=== PATIENT | female | born 1975 | race African-American/Black ===

== ENCOUNTER 2024-05-07 17:00 | Emergency (ER) | payer OTHER ==
--- OUTSIDE RECORDS SUMMARY | 2024-05-07 17:03 | XMS REPORT | Continuity of Care Document ---
Author Name Unknown Address [address] [place] [address] [facility] Address [address] [place] [address] Care Team Providers Care Negative Turner Apprentice Name Role Phone Pauline James Attending Clinician YULIANA Gavin Attending Clinician Unavailable Lab, Adc Fam Pob I Attending Clinician Adilia Marinelli Attending Clinician ADILIA LANDON Attending Clinician Unavailable Pob1, Acute Care Clinic Attending Clinician Joanne Koenig RN Attending Clinician Natasha ble KNOW, DOES_NOT Admitting Clinician Unavailable Payers Payer Name Policy Type Policy Number Effective Date Expirati on Date Source Problems Condition Name Condition Details Condition Category Status Onset Date Resolution Date Last Treatment Date Treating Clinician Comments Source Elevated blood-pres sure reading without diagnosis of hypertensi on Elevated Blood-pres sure Reading without Diagnosis of Hypertensi on Problem Active 12-05 00:00: 00 [facility] Anxiety Anxiety Problem Active 12-05 00:00: 00 [facility] Acute vaginitis Acute Vaginitis Problem Active 12-05 00:00: 00 [facility] Menopausal flushing Menopausal Flushing Problem Active 12-05 00:00: 00 [facility] Obesity Obesity Disease Active 12-06 00:00: 00 Overview: ICD10 Diagnosis Term Machine In[employer] [facility] Encounter for routine gynecologi therese examinatio n Encounter for routine gynecologi therese examinatio n Disease Active 12-06 00:00: 00 Overview: ICD10 Diagnosis Term Machine [employer] [facility] Uterine leiomyoma, unspecifie d location Uterine leiomyoma, unspecifie d location Disease Active 12-06 00:00: 00 [facility] Polyp of cervix Polyp of Cervix Problem Active [facility] Enlarged uterus Enlarged Uterus Problem Active [facility] Abnormal uterine bleeding Abnormal Uterine Bleeding Problem Active [facility] Abnormal cervical Papanicola ou smear with human papillomav irus deoxyribon ucleic acid detected Abnormal Cervical Papanicola ou Smear with Human Papillomav irus Deoxyribon ucleic Acid Detected Problem Active [facility] Allergies, Adverse Reactions, Alerts Allergy Name Allergy Type Status Severity Reaction(s) Onset Date Inactive Date Treating Clinician Comments Source No Known Allergie s DA Active U 03-27 00:00: 00 [facility] NO KNOWN ALLERGIE S Drug Class Active [facility] Social History Social Habit Start Date Stop Date Quantity Comments Source Tobacco Comment social smoking [facility] Exposure to SARS-CoV-2 (event) Yes [facility] History of tobacco use Cigarette Smoker [facility] Cigarette pack-years 2020-01-02 00:00:00 2020-01-02 00:00:00 [facility] Alcohol intake 2020-01-02 00:00:00 2020-01-02 00:00:00 [facility] Cigarettes smoked current (pack per day) - Reported 2020-01-02 00:00:00 2020-01-02 00:00:00 [facility] Smoking Status Start Date Stop Date Source Smoker, Current Status Unknown [facility] Current some day smoker 2020-01-02 00:00:00 [facility] Medications Ordered Medication Name Filled Medication Name Start Date Stop Date Current Medication? Ordering Clinician Indication Dosage Frequency Signature (SIG) Comments Components Source acetaminoph en-codeine (TYLENOL #3) 300-30 mg tablet 08-24 00:00: 00 Yes 2{tbl} Take 2 Tabs by mouth every 6 (six) hours as needed for Pain (scale 4-6). [facility] naproxen (NAPROSYN) 500 mg tablet 08-24 00:00: 00 Yes 500mg Take 1 Tab by mouth 2 (two) times daily with meals. [facility] metronidazo le 500 mg tablet Take 1 tablet twice a day by oral route for 7 days. metronidazo le 500 mg tablet Take 1 tablet twice a day by oral route for 7 days. No 1 BID metronidaz ole 500 mg tablet Take 1 tablet twice a day by oral route for 7 days. [facility] sertraline 50 mg tablet sertraline 50 mg tablet No sertraline 50 mg tablet [facility] Vital Signs Vital Name Observation Time Observation Value Comments S ource Height 2023-12-06 00:00:00 66 [in_i] [facility] Body Weight 2023-12-06 00:00:00 237.8 [lb_av] [facility] BP Systolic 2023-12-06 00:00:00 144 mm[Hg] [facility] BP Diastolic 2023-12-06 00:00:00 100 mm[Hg] [facility] BMI (Body Mass Index) 2023-12-06 00:00:00 38.4 kg/m2 [facility] Systolic blood pressure 2020-01-02 15:51:00 142 mm[Hg] [facility] Diastolic blood pressure 2020-01-02 15:51:00 100 mm[Hg] [facility] Heart rate 2020-01-02 15:46:00 92 /min [facility] Body temperature 2020-01-02 15:46:00 36.94 Kimberly [facility] Respiratory rate 2020-01-02 15:46:00 18 /min [facility] Body height 2020-01-02 15:46:00 167.6 cm [facility] Body weight 2020-01-02 15:46:00 98.34 kg [facility] BMI 2020-01-02 15:46:00 34.99 kg/m2 [facility] Oxygen saturation in Arterial blood by Pulse oximetry 2020-01-02 15:46:00 99 /min [facility] Systolic blood pressure 2020-01-02 15:51:00 142 mm[Hg] [facility] Diastolic blood pressure 2020-01-02 15:51:00 100 mm[Hg] [facility] Heart rate 2020-01-02 15:46:00 92 /min [facility] Body temperature 2020-01-02 15:46:00 36.94 Kimberly [facility] Respiratory rate 2020-01-02 15:46:00 18 /min [facility] Body height 2020-01-02 15:46:00 167.6 cm [facility] Body weight 2020-01-02 15:46:00 98.34 kg [facility] BMI 2020-01-02 15:46:00 34.99 kg/m2 [facility] Oxygen saturation in Arterial blood by Pulse oximetry 2020-01-02 15:46:00 99 /min [facility] Procedures Procedure Date / Time Performed Performing Clinicia n Source MAMMO, screening, digital, bilateral 2023-12-06 00:00:00 [facility] Hysterectomy 2015-07-05 00:00:00 [facility] edical Encounters Start Date/Time End Date/Time Encounter Type Admission Type Attending Clinicians Care Facility Care Department Encounter ID Source 2023-12-06 00:00:00 2023-12-06 00:00:00 JUDY Limon: [address], [place] [address] , Ph. [facility] GC_GCBZW_Perri [facility]* [id number] [facility] 2023-08-08 22:34:00 2023-08-09 00:20:00 Emergency EM Pauline James HCAKW ATERS [id number] [facility] 2021-03-03 14:00:00 2021-03-03 14:00:00 Outpatient YULIANA OLVERA [facility] [id number] [facility] 2020-01-21 09:39:34 2020-01-21 09:58:54 Laboratory Only Lab, Adc Fam Pob Adilia Hernandez [facility] [address] 1..114 [id number] [facility] 2020-01-21 09:40:00 2020-01-21 09:40:00 Outpatient ADILIA LYN [facility] [id number] [facility] 2020-01-16 00:00:00 2020-01-16 00:00:00 Telephone Pob1, Acute Care [facility] [address] 1.0.114 [id number] [id number] 2020-01-16 00:00:00 2020-01-16 00:00:00 Telephone Pob1, Acute Care [facility] [address] 1.0.114 [id number] [id number] [facility] 2020-01-15 00:00:00 2020-01-15 00:00:00 Telephone Pob1, Acute [facility] [address] 1.0.114 [id number] [id number] 2020-01-15 00:00:00 2020-01-15 00:00:00 Telephone Pob1, Acute [facility] [address] 1..114 [id number] [id number] [facility] 2020-01-04 00:00:00 2020-01-04 00:00:00 Telephone Joanne Rahman [facility] 1..114 [id number] [id number] 2020-01-04 00:00:00 2020-01-04 00:00:00 Telephone Joanne Rahman [facility] 1..114 [id number] [id number] [id number] [facility] 2020-01-02 10:31:19 2020-01-02 10:51:19 Urgent Care Po, Acute Care [facility] [address] 1.84.114 [id number] [id number] [id number] 2020-01-02 10:31:19 2020-01-02 10:51:19 Urgent Care Po, Acute Care Clinic Rosalba Adilia [facility] [address] 1.84.114 [id number] [id number] [facility] 2020-01-02 10:40:00 2020-01-02 10:40:00 Outpatient R ADILIA LANDON [facility] [id number] [facility] Results Test Description Test Time Test Comments Results Resul t Comments Source - XR ANKLE 3 + V LT 2023-08-08 23:39:00 [facility] 1975 Sex: F FAX: Pauline James [place]: [facility] [address]: PRE Name: PERICO BARRIENTOS[place] FSED : 1975 Age/S: 47/F [address] Unit #: [id number] Loc: C.AER Phys: [place] [address] Acct: [id number] Dis Date: Status: PRE ER PHONE #: Exam Date: 08/08/20232329 FAX #: Reason: FALL EXAMS: CPT CODE: [id number] XR ANKLE 3 + V LT [address] EXAM: - XR ANKLE 3 + V LT CLINICAL HISTORY: FALL COMPARISON: None available. TECHNIQUE: 3 views. AP, oblique, and lateral. LOCATION: H65 FINDINGS: Bones: No acute displaced fracture or dislocation identified. Normal marrow density. Well-corticated calcific density noted adjacent to the lateral malleolus, likely representing sequelae of chronic injury. Mild Achilles tendon insertional enthesophyte formation. Joint spaces: The ankle mortise is grossly intact. Soft tissues: Unremarkable. IMPRESSION: No acute osseous findings. Evidence of remote injury to the lateral malleolus. at 2339 Reported and signed by: Juan Christianson DO CC: Pauline James MD Technologist: JESSICA CRESPO JR Trnscrd Date/Time/By: 08/08/2023 (6132) : By: [email or web address] PAGE 1 Signed Report FAX: Pauline James [place]: [facility] St: PRE Name: PERICO BARRIENTOS [place] FSED : 1975 Age/S: 47/F [address] Unit #: [id number] Loc: C.AER Phys: [place] [address] Acct: [id number] Dis Date: Status: PRE ER PHONE #: Exam Date: 08/08/2023 2330 FAX #: Reason: FALL EXAMS: CPT CODE: [id number] XR ANKLE 3 + V LT 32094 (Continued) Orig Print D/T: S: 08/08/2023 (2342) PAGE 2 Signed Report Notes Date/Time Note Provider Source 2023-08-09 00:05:00 [facility] ([facility]) EMERGENCY PROVIDER REPORT REPORT#:[id number] REPORT STATUS: Signed DATE:08/09/23 TIME: 0005 PATIENT: PERICO BARRIENTOS UNIT #: [id number] ROOM/BED: AGE: 47 SEX: F PCP PHYS: DOES_NOT KNOW SERVICE AUTHOR: Pauline James MD * ALL edits or amendments must be made on the electronic/computer document * HPI-Extremity Prob Lower General Initial Greet Date/Time 08/08/232301 Presentation Chief Complaint Ankle problem L Free Text HPI Notes Free Text HPI Notes Patient was walking when she accidentally stepped into a ditch and the ground with her left foot. Patient did not fall, either head or pass out. Patient with left ankle pain since then. Episode happened 2 hours prior to coming in. Past Medical History - Adult Stated Complaint FOOT PROBLEM Allergies Coded Allergies: No Known Allergies (03/27/16) Home Medications Active Scripts ACETAMINOPHEN/CODEINE (TYLENOL WITH CODEINE #3 300/30 MG) 2 TAB PO Q6H PRN PRN pain ACETAMINOPHEN/CODEINE (TYLENOL WITH CODEINE #3 300/30 MG) 2 TAB PO Q6H PRN PRN pain #40 Prov: 03/28/16 IBUPROFEN (MOTRIN) 600 MG PO Q6H PRN PRN FOR PAIN IBUPROFEN (MOTRIN) 600 MG PO Q6H PRN PRN FOR PAIN #40 Prov: 03/28/16 DOCUSATE SODIUM (COLACE) 100 MG PO BID PRN PRN CONSTIPATION DOCUSATE SODIUM (COLACE) 100 MG PO BID PRN PRN CONSTIPATION #14 Prov: 03/28/16 DOXYCYCLINE HYCLATE (VIBRAMYCIN) 100 MG PO BID DOXYCYCLINE HYCLATE (VIBRAMYCIN) 100 MG PO BID #14 CAP Prov: 03/28/16 Smoking status for patients 13 years old or older: Never Smoker Physical Exam Vital Signs Vital Signs First Documented: Result Date Time Pulse Ox 98 08/08 2248 B/P 145/98 08/08 2248 B/P Mean 113 08/08 2248 O2 Delivery Room air 08/08 2248 Temp 36.5 08/08 2248 Pulse 99 08/08 2248 Resp 08/08 Last Documented: Result Date Time Pulse Ox 100 / 0018 B/P 135/70 02/ 0018 B/P Mean 91 / 0018 Temp 36.7 02/ 0018 Pulse 70 /8 Resp 16 08/098 O2 Delivery Room air 08/08 2248 Review of Vital Signs Reviewed Interpretation Diagnostics Lab Results Interpretation Results Recent Impressions: RADIOLOGY - XR ANKLE 3 + V LT 08/08 2329 Report Impression - Status: SIGNED Entered: 08/08/20232341 IMPRESSION: No acute osseous findings. Evidence of remote injury to the lateral malleolus. Impression By: [email or web address] - Juan Christianson DO Re-Evaluation MDM Differential Diagnosis Differential Diagnosis Contusion, Fracture, Sprain, Strain MDM-Treatment/Evaluation ED Course Will obtain x-rays. Patient already took Tylenol prior to coming in. X-ray negative. Discussed RICE. Patient already has improved. Discussed return to ED precautions. All questions answered patient discharged Patient Discharge Departure Vital Signs/Condition Vital Signs First Documented: Result Date Time Pulse Ox 98 08/08 2248 B/P 145/98 08/08 2248 B/P Mean 113 08/08 2248 O2 Delivery Room air 08/08 2248 Temp 36.5 08/08 2248 Pulse 99 08/08 2248 Resp 08/08 Last Documented: Result Date Time Pulse Ox 100 02/ 0018 B/P 135/70 02/05 0018 B/P Mean 91 02/ 0018 Temp 36.7 02/ 0018 Pulse 70 02/05 0018 Resp 16 08/09 0018 O2 Delivery Room air 08/08 2126 All vital signs available at the time of this entry have been reviewed. Clinical Impression Clinical Impression Primary Impression: Ankle sprain Secondary Impressions: Ankle swelling determined by examination Disposition Decision Discharge )( Discharged to Home Yes Discharge/Care Plan (Auto) Prescriptions Current Visit Scripts IBUPROFEN (MOTRIN) 800 MG PO TID PRN PRN PAIN IBUPROFEN (MOTRIN) 800 MG PO TID PRN PRN PAIN #30 TABS Departure Forms WORK/SCHOOL EXCUSE VARIABLE Any Restrictions light duty for 1 week or until ankle heals Discharge Note I have spoken with the patient and/or caregivers. I have explained the patient's condition, diagnoses and treatment plan based on the information available to me at this time. I have answered the patient's and/or caregiver's questions and addressed any concerns. The patient and/or caregivers have as good an understanding of the patient's diagnosis, condition and treatment plan as can be expected at this point. The vital signs have been stable. The patient's condition is stable and appropriate for discharge from the emergency department. The patient will pursue further outpatient evaluation with the primary care physician or other designated or consulting physician as outlined in the discharge instructions. The patient and/or caregivers are agreeable to this plan of care and follow-up instructions have been explained in detail. The patient and/or caregivers have received these instructions in written format and have expressed an understanding of the discharge instructions. The patient and/or caregivers are aware that any significant change in condition or worsening of symptoms should prompt an immediate return to this or the closest emergency department or a call to 911. at [address] [facility] #:[id number] END OF REPORT SHILOHKW
[2024-05-07] MEDS ORDERED: IBUPROFEN 400 MG TAB ONE (17:45)
[2024-05-07] MEDS ORDERED: ACETAMINOPHEN 500 MG TAB ONE (17:45)
--- NOTE | 2024-05-07 18:44 | RAD REPORT ---
EXAMINATION: Ankle Left 3 View CLINICAL INDICATION: Female, 48 years old. PAIN COMPARISON: No prior exam. FINDINGS: No acute fracture. No malalignment/dislocation. Calcaneal spurring. Other: n/a IMPRESSION: No acute osseous abnormality.
--- NOTE | 2024-05-07 18:56 | EDPHYS ---
Physician Documentation [facility] Name: Paulette Esparza Age: 48 yrs Sex: Female : 1975 Arrival Date: 05/07/2024 Time: 17:00 Bed 19 Private MD: ED Physician Ramiro Stewart HPI: 05/07 17:40 This 48 yrs old Black Female presents to ER via Wheelchair with complaints of Foot cp Injury - Left. 17:40 The patient presents with an injury, pain, that is acute. The complaints affect the cp left Achilles. 17:40 Context: resulted from a mis-step, the patient can partially bear weight, the patient cp is able to ambulate, with moderate difficulty, Problem is a result from a previous injury: No. Onset: The symptoms/episode began/occurred about an hour prior to arrival. 17:40 Associated signs and symptoms: Pertinent positives: calf tenderness, Pertinent cp negatives numbness. Treatment prior to arrival includes: no previous treatment. YOGA COORDINATOR: 19:10 unknown cm10 Historical: - Allergies: 17:20 No Known Allergies; ll1 - PMHx: 17:20 None; ll1 - PSHx: 17:20 hysterectomy; ll1 - Immunization history:: Adult Immunizations up to date. - Infectious Disease History:: Denies. - Social history:: Smoking status: Reported history of juuling and/or vaping. ROS: 17:45 MS/extremity: Positive for pain, of the left Achilles, Negative for deformity, cp 17:45 Constitutional: Negative for body aches, chills, fever, poor PO intake, cp 17:45 Neck: Negative for pain with movement, pain at rest, stiffness, 17:45 Respiratory: Negative for cough, shortness of breath, wheezing, 17:45 Abdomen/GI: Negative for abdominal pain, nausea, vomiting, and diarrhea, 17:45 Back: Negative for pain at rest, pain with movement, 17:45 Neuro: Negative for numbness, 17:45 All other systems are negative, Exam: 17:50 Constitutional: The patient appears in no acute distress, alert, awake, well developed, cp well nourished, uncomfortable, overweight 17:50 Head/Face: Normocephalic, atraumatic. cp 17:50 Neck: ROM/movement: is normal, is supple, without pain, no range of motions limitations, 17:50 Cardiovascular: Rate: normal, Pulses: Pulses are 2+ in left dorsalis pedis artery. 17:50 Respiratory: the patient does not display signs of respiratory distress, Respirations: normal, no use of accessory muscles, no retractions, labored breathing, is not present, 17:50 Back: pain, is absent, ROM is normal, 17:50 Musculoskeletal/extremity: Extremities: noted in the left Achilles and left calf: tenderness, pain with dorsiflexion of left ankle, There is no evidence of Achilles rupture, 17:50 Neuro: Sensation: is normal, Vital Signs: 17:20 BP 147 / 94; Pulse 89; Resp 17; Pulse Ox 100% ; Weight 95.25 kg; Height 5 ft. 6 in. ; ll1 Pain 8/10; 17:20 Body Mass Index 33.89 (95.25 kg, 167.64 cm) ll1 17:20 Pain Scale: Adult ll1 MDM: 17:10 Medical Screening Exam initiated cp 17:50 Differential diagnosis: tendonitis, Achilles rupture, fracture. cp 18:55 Data reviewed: vital signs, nurses notes, radiologic studies, plain films, and as a cp result, I will discharge patient. 18:55 I considered the following discharge prescriptions or medication management in the emergency department Medications were administered in the Emergency Department. See MAR. Counseling: I had a detailed discussion with the patient and/or guardian regarding the historical points, exam findings, and any diagnostic results supporting the discharge/admit diagnosis, radiology results, the need for outpatient follow up, a orthopedic surgeon, to return to the emergency department if symptoms worsen or persist or if there are any questions or concerns that arise at home. Response to treatment: the patient's symptoms have mildly improved after treatment, and as a result, I will discharge patient. 05/07 17:36 Order name: XRAY Ankle LEFT 3 view; Complete Time: 18:45 cp 05/07 18:45 Interpretation: Report reviewed. 05/07 18:46 Order name: Walking boot; Complete Time: 18:58 cp Administered Medications: 17:51 Drug: Ibuprofen PO 800 mg PO once Route: PO; cm10 18:43 Follow up: Response: No adverse reaction cm10 17:51 Drug: Acetaminophen PO 1000 mg PO once Route: PO; cm10 18:42 Follow up: Response: No adverse reaction cm10 Disposition: 05/08 18:23 Chart complete. cp Disposition Summary: 05/07/24 18:55 Discharge Ordered Notes: Location: Home cp Problem: new cp Symptoms: have improved cp Condition: Stable cp Diagnosis - Strain of left Achilles tendon, initial encounter cp Followup: cp - With: Issac Carrion MD - When: 5 - 6 days - Reason: Recheck today's complaints Discharge Instructions: - Discharge Summary Sheet cp - RICE Therapy for Routine Care of Injuries cp Forms: - Medication Reconciliation Form cp - Antibiotic Education cp - Prescription Opioid Use cp - Patient Portal Instructions cp - Leadership Thank You Letter cp - Work release form br2 Prescriptions: - Crutches - One pair of Adult crutches; ; Refills: 0, Product Selection Permitted cp - Anaprox DS 550 mg Oral Tablet - take 1 tablet ORAL route every 12 hours As needed; 20 tablet; Refills: 0, cp Product Selection Permitted Signatures: Dispatcher [employer] EDMS Aram Brooks PA PA cp Kathy Painting RN RN ll1 Diane Eden RN RN cm10 Corrections: (The following items were deleted from the chart) 05/07 19:09 18:46 Crutches ordered. cp cm10
--- NOTE | 2024-05-07 18:56 | ER ---
Nurse's Notes [facility] Name: Paulette Esparza Age: 48 yrs Sex: Female : 1975 Arrival Date: 05/07/2024 Time: 17:00 Bed 19 Private MD: Diagnosis: Strain of left Achilles tendon, initial encounter Presentation: 05/07 17:20 Chief complaint: Patient states: Got spooked and stepped on her L foot wrong 1 hour ll1 [place]. Pain since. Coronavirus screen: Client denies travel out of the [place] in the last 14 days. At this time, the client does not indicate any symptoms associated with coronavirus-19. Ebola Screen: Patient denies travel to an Ebola-affected area in the 21 days before illness onset. Initial Sepsis Screen: Does the patient meet any 2 criteria? No. Patient's initial sepsis screen is negative. Does the patient have a suspected source of infection? No. Patient's initial sepsis screen is negative. Risk Assessment: Do you want to hurt yourself or someone else? Patient reports no desire to harm self or others. Onset of symptoms was May 07, 2024. 17:20 Method Of Arrival: Wheelchair ll1 17:20 Acuity: MARCUS 4 ll1 Triage Assessment: 17:20 General: Appears uncomfortable, Behavior is calm, cooperative, appropriate for age. ll1 Pain: Complains of pain in left foot Quality of pain is described as aching. Musculoskeletal: Reports pain in left foot. Injury Description: Bruise. NURSING SCHEDULER: 19:10 unknown cm10 Historical: - Allergies: 17:20 No Known Allergies; ll1 - PMHx: 17:20 None; ll1 - PSHx: 17:20 hysterectomy; ll1 - Immunization history:: Adult Immunizations up to date. - Infectious Disease History:: Denies. - Social history:: Smoking status: Reported history of juuling and/or vaping. Screenin:50 [facility] ED Fall Risk Assessment (Adult) History of falling in the last 3 months, cm10 including since admission Yes- single mechanical fall (1 pt) Confusion or Disorientation No (0 pts) Intoxicated or Sedated No (0 pts) Impaired Gait No (0 pts) Mobility Assist Device Used No (0 pt) Altered Elimination No (0 pt) Score/Fall Risk Level 0 - 2 = Low Risk Oriented to surroundings, Maintained a safe environment, Hourly rounding (assess needs \T\ fall precautionary measures) done. Abuse screen: Denies threats or abuse. Denies injuries from another. Nutritional screening: No deficits noted. Tuberculosis screening: No symptoms or risk factors identified. Assessment: 17:50 General: Appears in no apparent distress. uncomfortable, Behavior is calm, cooperative, cm10 appropriate for age. Neuro: No deficits noted. Level of Consciousness is awake, alert, obeys commands, Oriented to person, place, time, situation, Appropriate for age. Respiratory: No deficits noted. Airway is patent Respiratory effort is even, unlabored, Respiratory pattern is regular, symmetrical. Musculoskeletal: No deficits noted. Reports pain in left foot. 18:59 Reassessment: Patient appears in no apparent distress at this time. No changes from cm10 previously documented assessment. Patient and/or family updated on plan of care and expected duration. Pain level reassessed. Patient is alert, oriented x 3, equal unlabored respirations, skin warm/dry/pink. Vital Signs: 17:20 BP 147 / 94; Pulse 89; Resp 17; Pulse Ox 100% ; Weight 95.25 kg; Height 5 ft. 6 in. ; ll1 Pain 8/10; 17:20 Body Mass Index 33.89 (95.25 kg, 167.64 cm) ll1 17:20 Pain Scale: Adult ll1 ED Course: 17:07 Patient arrived in ED. ra3 17:10 Aram Brooks PA is PHCP. cp 17:10 Ramiro Stewart MD is Attending Physician. cp 17:17 Arm band placed on. ll1 17:21 Triage completed. ll1 17:37 Diane Eden, RN is Primary Nurse. cm10 17:50 Patient has correct armband on for positive identification. Bed in low position. Call cm10 light in reach. Provided Education on: ER process and procedures.. Cardiac monitoring not applicable on this patient. 18:42 XRAY Ankle LEFT 3 view In Process Unspecified. EDMS 18:54 Issac Carrion MD is Referral Physician. cp 18:59 3D boot applied to left foot. cm10 18:59 No provider procedures requiring assistance completed. Patient did not have IV access cm10 during this emergency room visit. 19:12 Primary Nurse role handed off by Diane Eden, RN br2 Administered Medications: 17:51 Drug: Ibuprofen PO 800 mg PO once Route: PO; cm10 18:43 Follow up: Response: No adverse reaction cm10 17:51 Drug: Acetaminophen PO 1000 mg PO once Route: PO; cm10 18:42 Follow up: Response: No adverse reaction cm10 Medication: 17:50 VIS not applicable for this client. cm10 Outcome: 18:55 Discharge ordered by MD. cp 19:09 Discharged to home via wheelchair, with family, cm10 19:09 Condition: good 19:09 Discharge instructions given to patient, Instructed on discharge instructions, follow up and referral plans. medication usage, Demonstrated understanding of instructions, follow-up care, medications, Prescriptions given X 2, 19:10 Patient left the ED. cm10 19:13 Patient left the ED. br2 Signatures: Dispatcher [employer] EDMS Aram Brooks PA PA cp Lewis, Lynsay, RN RN ll1 Diane Eden RN RN cm10 Jessica Raya ra3 Sheeba Sosa RN RN br2
[2024-05-07 19:14] VITALS: BP 147/94; O2SAT 100
== END 2024-05-07 19:13 | disposition home or self-care (01) ==
LOC: ER 17:00
DX: S86.012A Strain of left Achilles tendon, initial encounter (principal)
CPT/HCPCS: 99283